=== PATIENT | male | born 1990 | race Caucasian/White ===

== ENCOUNTER 2016-10-30 02:06 | Emergency (ER) | payer SELFPAY ==
[~2016-10-30] VITALS: Ht 177.8 cm; Wt 113.6 kg
[2016-10-30 02:09] VITALS: BP 145/87; TEMP 98.2
[2016-10-30] MEDS ORDERED: PEN-VEE K500 MG PO (02:30)
[2016-10-30] MEDS ORDERED: NORCO 325 MG-51 TAB PO (02:30)
[2016-10-30 02:44] VITALS: PULSE 69
== END 2016-10-30 02:44 | disposition home or self-care (01) ==
LOC: COL.ER 02:06
DX: K08.89 Other specified disorders of teeth and supporting structures (principal); K05.10 Chronic gingivitis, plaque induced; F17.210 Nicotine dependence, cigarettes, uncomplicated; F17.220 Nicotine dependence, chewing tobacco, uncomplicated

== ENCOUNTER 2017-08-06 22:45 | Emergency (ER) | payer OTHER ==
[~2017-08-06] VITALS: Ht 180.3 cm; Wt 96.8 kg
[~2017-08-06 22:45] MED LIST: NORCO 325 MG-51 TAB PO; PEN-VEE K500 MG PO
[2017-08-06 22:53] VITALS: TEMP 97.9
[2017-08-06] MEDS ORDERED: ULTRAM 50MG TAB50 MG PO (23:31)
[2017-08-06 23:37] VITALS: BP 123/64; PULSE 70
== END 2017-08-06 23:37 | disposition home or self-care (01) ==
LOC: COL.ER 22:45
DX: S20.211A Contusion of right front wall of thorax, initial encounter (principal); F17.210 Nicotine dependence, cigarettes, uncomplicated; V03.10XA Pedestrian on foot injured in collision with car, pick-up truck or van in traffic accident, initial encounter
CPT/HCPCS: A9284

== ENCOUNTER 2019-08-07 13:37 | Emergency (ER) | payer SELFPAY ==
[~2019-08-07] VITALS: Ht 180.3 cm; Wt 104.5 kg
[~2019-08-07 13:37] MED LIST changes: +ULTRAM 50MG TAB50 MG PO
[2019-08-07 13:45] VITALS: BP 136/85; TEMP 98.7
[2019-08-07 15:45] VITALS: PULSE 70
== END 2019-08-07 15:43 | disposition home or self-care (01) ==
LOC: COL.ER 13:37
DX: T33.832A Superficial frostbite of left toe(s), initial encounter (principal); T33.831A Superficial frostbite of right toe(s), initial encounter; B35.3 Tinea pedis; L21.9 Seborrheic dermatitis, unspecified; X31.XXXA Exposure to excessive natural cold, initial encounter; Y99.0 Civilian activity done for income or pay

== ENCOUNTER 2019-12-01 17:46 | Emergency (ER) | payer SELFPAY ==
[~2019-12-01] VITALS: Ht 180.3 cm; Wt 109.1 kg
[2019-12-01 17:52] VITALS: BP 110/77; TEMP 98.4
[2019-12-01] MEDS ORDERED: ULTRAM 50MG TAB50 MG PO ×3 (18:22→21:06)
[2019-12-01] MEDS ORDERED: AMOXICILLIN 50500 MG PO ×3 (18:22→21:06)
[2019-12-01 18:41] VITALS: PULSE 72
== END 2019-12-01 18:43 | disposition home or self-care (01) ==
LOC: COL.ER 17:46
DX: K02.9 Dental caries, unspecified (principal); F17.210 Nicotine dependence, cigarettes, uncomplicated; Z90.89 Acquired absence of other organs

== ENCOUNTER 2019-12-03 15:52 | Emergency (ER) | payer SELFPAY ==
[~2019-12-03] VITALS: Ht 180.3 cm; Wt 109.1 kg
[~2019-12-03 15:52] MED LIST changes: +AMOXICILLIN 50500 MG PO
[2019-12-03 16:03] VITALS: BP 136/81; TEMP 98.9
[2019-12-03] MEDS ORDERED: CLEOCIN HCL300 MG PO (17:49)
[2019-12-03] MEDS ORDERED: ROXICODONE 55 MG/TAB PO (18:25)
[2019-12-03 19:39] VITALS: PULSE 85
== END 2019-12-03 19:39 | disposition home or self-care (01) ==
LOC: COL.ER 15:52
DX: M27.2 Inflammatory conditions of jaws (principal); F17.210 Nicotine dependence, cigarettes, uncomplicated
CPT/HCPCS: J1885; J7030

== ENCOUNTER 2019-12-04 11:00 | Emergency (ER) | payer SELFPAY ==
[~2019-12-04] VITALS: Ht 180.3 cm; Wt 109.1 kg
[~2019-12-04 11:00] MED LIST changes: +CLEOCIN HCL300 MG PO; +ROXICODONE 55 MG/TAB PO
[2019-12-04 11:05] VITALS: TEMP 98.5
[2019-12-04 12:40] VITALS: BP 117/73; PULSE 82
== END 2019-12-04 12:40 | disposition home or self-care (01) ==
LOC: COL.ER 11:00
DX: K04.7 Periapical abscess without sinus (principal); K03.81 Cracked tooth; F17.210 Nicotine dependence, cigarettes, uncomplicated; Z79.891 Long term (current) use of opiate analgesic
CPT/HCPCS: J1885

== ENCOUNTER 2020-07-26 15:26 | Emergency (ER) | payer OTHER ==
[~2020-07-26] VITALS: Ht 180.3 cm; Wt 102.3 kg
[2020-07-26 15:26] VITALS: TEMP 98
[2020-07-26 16:47] VITALS: BP 137/83; PULSE 91
== END 2020-07-26 16:48 | disposition home or self-care (01) ==
LOC: COL.ER 15:26
DX: S20.211A Contusion of right front wall of thorax, initial encounter (principal); M25.561 Pain in right knee; Z88.6 Allergy status to analgesic agent; W17.89XA Other fall from one level to another, initial encounter